=== PATIENT | male | born 1970 | race Hispanic/Latino ===

== ENCOUNTER 2021-07-14 11:28 | Inpatient (IN) | payer OTHER, SELFPAY ==
[~2021-07-14] VITALS: Ht 182.9 cm; Wt 111.3 kg
[2021-07-14] VITALS (10 sets, daily range): BP systolic 124–162; BP diastolic 74–122
[2021-07-14 12:26] LABS: BASOPHILS % (AUTO) 0.5 % (0.0-5.0); EOSINOPHILS % (AUTO) 0.4 % (0.0-8.0); HEMATOCRIT 40.3 % (42-54); LYMPHOCYTES % (AUTO) 17.4 % (21.0-51.0); MEAN CORPUSCULAR HEMOGLOBIN 30.7 pg (27.0-33.0); MEAN CORPUSCULAR HGB CONC 32.8 g/dL (32.0-36.0); MEAN CORPUSCULAR VOLUME 93.7 fL (79-99); MONOCYTES % (AUTO) 9.9 % (3.0-13.0); NEUTROPHILS % (AUTO) 71.5 % (40.0-77.0); PLATELET COUNT (AUTO) 195 K/uL (130-400); RED CELL DISTRIBUTION WIDTH 15.7 % (11.0-15.5); WHITE BLOOD COUNT (AUTO) 9.9 K/uL (4.8-10.8)
[2021-07-14] MEDS ORDERED: FUROSEMIDE 40MG VIAL IV STA (12:42)
[2021-07-14 12:47] LABS: ALBUMIN 2.9 g/dL (3.5-5.0); BILIRUBIN,TOTAL 1.8 mg/dL (0.2-1.0); CREATININE 1.6 mg/dL (0.5-1.5); TOTAL PROTEIN, SERUM 7.1 g/dL (6.0-8.3)
[2021-07-14 12:50] LABS: POTASSIUM 2.9 mmol/L (3.5-5.1)
[2021-07-14] MEDS ORDERED: NITROGLYCERIN 1GM OINT 1 INCH/1GM TD ONE ×2 (12:54→13:00)
[2021-07-14] MEDS ORDERED: POTASSIUM BICARB/CIT AC 25 MEQ TABLET.EFF PO STA (13:05)
[2021-07-14 13:07] LABS: B-TYPE NATRIURETIC PEPTIDE > 5000 pg/mL (0-100)
[2021-07-14] MEDS ORDERED: POTASSIUM CHLORIDE 10MEQ/100ML 100 ML IV PRN ×2 (15:30)
[2021-07-14] MEDS ORDERED: DEXTROSE 50%-WATER 50 ML DISP.SYRIN IV PRN (15:30)
[2021-07-14] MEDS ORDERED: ONDANSETRON 4MG INJ IVP PRN (15:30)
[2021-07-14] MEDS ORDERED: GLUCAGON 1MG KIT 1 MG ML IM PRN (15:30)
[2021-07-14] MEDS ORDERED: LIDOCAINE HCL-MPF 1% 2ML VIAL IV PRN ×2 (15:30)
[2021-07-14] MEDS ORDERED: ACETAMINOPHEN 650 MG SUPPOSITORY RC PRN (15:30)
[2021-07-14] MEDS ORDERED: POTASSIUM CHLORIDE 10% ELIXIR 20 MEQ/15 ML UDCUP PO PRN (15:30)
[2021-07-14] MEDS ORDERED: ACETAMINOPHEN 325 MG TAB PO PRN (15:30)
[2021-07-14 16:12] LABS: APPEARANCE,URINE Clear (CLEAR); BILIRUBIN,URINE Negative (NEGATIVE); COLOR,URINE Yellow (YELLOW); GLUCOSE, URINE (UA) Negative (NEGATIVE); KETONES,URINE Negative (NEGATIVE); LEUKOCYTE ESTERASE ,URINE Negative (NEGATIVE); NITRATE,URINE Negative (NEGATIVE); OCCULT BLOOD,URINE Negative (NEGATIVE); PH,URINE 6.5 (5.0-8.0); PROTEIN,URINE Negative (NEGATIVE); UROBILINOGEN,URINE 0.2 mg/dL (0.2-1.0)
[2021-07-14] MEDS ORDERED: ALBUTEROL 0.083% 2.5 MG/3 ML INH IH PRN (16:30)
[2021-07-14] MEDS ORDERED: AZITHROMYCIN 500MG VIAL IVPB SCH (16:30)
[2021-07-14] MEDS ORDERED: CEFTRIAXONE 1G VIAL IVP SCH (16:30)
[2021-07-14 16:31] LABS: AMPHET/METH SCREEN,URINE NEGATIVE (NEGATIVE); BARBITURATE SCREEN, URINE NEGATIVE (NEGATIVE); BENZODIAZEPINES SCREEN,URINE NEGATIVE (NEGATIVE); CANNABINOID SCREEN,URINE NEGATIVE (NEGATIVE); COCAINE SCREEN,URINE NEGATIVE (NEGATIVE); OPIATE SCREEN,URINE NEGATIVE (NEGATIVE); PHENCYCLIDINE SCREEN,URINE NEGATIVE (NEGATIVE)
[2021-07-14] MEDS ORDERED: AZITHROMYCIN 500MG+NS 250ML 250 ML IV ONE (16:39)
[2021-07-14] MEDS: 0.9% NACL 250ML IVPB SCH (16:57)
[2021-07-14] MEDS: FUROSEMIDE 40MG VIAL IV SCH (21:24)
[2021-07-14] MEDS: METOPROLOL TARTRATE 25 MG TAB PO SCH (21:24)
[2021-07-14] MEDS ORDERED: HYDR25TA PO (23:54)
[2021-07-15] MEDS ORDERED: HYD50 PO (00:07)
[2021-07-15 03:54] VITALS: BP 144/83
[2021-07-15 03:59] LABS: BASOPHILS % (AUTO) 0.3 % (0.0-5.0); EOSINOPHILS % (AUTO) 0.3 % (0.0-8.0); HEMATOCRIT 36.7 % (42-54); LYMPHOCYTES % (AUTO) 16.2 % (21.0-51.0); MEAN CORPUSCULAR HEMOGLOBIN 30.5 pg (27.0-33.0); MEAN CORPUSCULAR HGB CONC 32.2 g/dL (32.0-36.0); MEAN CORPUSCULAR VOLUME 94.8 fL (79-99); NEUTROPHILS % (AUTO) 71.7 % (40.0-77.0); PLATELET COUNT (AUTO) 171 K/uL (130-400); RED BLOOD CELL COUNT(AUTO) 3.87 MIL/uL (4.50-6.20); RED CELL DISTRIBUTION WIDTH 15.7 % (11.0-15.5); WHITE BLOOD COUNT (AUTO) 8.6 K/uL (4.8-10.8)
[2021-07-15 04:14] LABS: B-TYPE NATRIURETIC PEPTIDE > 5000 pg/mL (0-100)
[2021-07-15 04:27] LABS: HEMOGLOBIN A1C 5.7 % (4.0-6.0)
[2021-07-15 04:29] LABS: CREATININE 1.7 mg/dL (0.5-1.5); MAGNESIUM 1.5 mg/dL (1.80-2.40); PHOSPHORUS 4.2 mg/dL (2.5-4.9); THYROID STIMULATING HORMONE 2.75 uIU/mL (0.36-3.74)
[2021-07-15 04:40] LABS: POTASSIUM 2.9 mmol/L (3.5-5.1)
[2021-07-15] MEDS: KCL 20 MEQ ERTAB PO PRN ×5 (05:07→21:00)
[2021-07-15] MEDS: MAGNESIUM 2GM PREMIX 50ML 50 ML IV SCH ×2 (05:08→15:36)
[2021-07-15 07:00] VITALS: BP 134/94
[2021-07-15] MEDS: PANTOPRAZOLE 40 MG TAB DR PO SCH (07:26)
[2021-07-15] MEDS: POLYETHYLENE GLYCOL 3350 17 GM POWD.PACK PO SCH (10:27)
[2021-07-15] MEDS: METOPROLOL TARTRATE 25 MG TAB PO SCH (10:28)
[2021-07-15] MEDS: FUROSEMIDE 40MG VIAL IV SCH ×2 (10:28→21:00)
[2021-07-15] MEDS: ASPIRIN 81MG CHEW TAB PO SCH (10:28)
[2021-07-15] MEDS: ENOXAPARIN SODIUM 30 MG/0.3 ML SQ SCH (10:29)
[2021-07-15 11:00] VITALS: BP 142/100
[2021-07-15 13:49] LABS: MAGNESIUM 1.8 mg/dL (1.80-2.40); POTASSIUM 3.1 mmol/L (3.5-5.1)
[2021-07-15] MEDS ORDERED: 0.9% NACL 250ML IVPB SCH (14:30)
[2021-07-15] MEDS ORDERED: AZITHROMYCIN 500MG VIAL IVPB SCH (14:30)
[2021-07-15 15:00] VITALS: BP 116/76
[2021-07-15] MEDS: CEFTRIAXONE 2GM VIAL IVP SCH (15:35)
[2021-07-15] MEDS: 0.9% NACL 250ML IVPB SCH (17:51)
[2021-07-15] MEDS: AZITHROMYCIN 500MG+NS 250ML IV SCH (17:51)
[2021-07-15 19:00] VITALS: BP 106/82
[2021-07-15 19:54] LABS: CREATININE,SERUM FOR CRCL 1.7 mg/dL (0.6-1.3)
[2021-07-15 20:05] LABS: COLLECTION PERIOD,URINE 24 HR; TOTAL VOLUME 24HRS,URINE 3000 mL; TPROTEIN TIMED,URINE 14 mg/dL; TPROTEIN U,24HR CALC 420 mg/24HR (0-165)
[2021-07-15] MEDS: CARVEDILOL 3.125 MG TABLET PO SCH (20:59)
[2021-07-15] MEDS ORDERED: HYDROXYZINE 25 MG TABLET PO ONE (22:00)
[2021-07-16] VITALS: BP 119/84
[2021-07-16 04:00] VITALS: BP 113/81
[2021-07-16 04:17] LABS: HEMATOCRIT 38.5 % (42-54); MEAN CORPUSCULAR HEMOGLOBIN 30.2 pg (27.0-33.0); MEAN CORPUSCULAR HGB CONC 31.9 g/dL (32.0-36.0); MEAN CORPUSCULAR VOLUME 94.6 fL (79-99); PLATELET COUNT (AUTO) 181 K/uL (130-400); RED BLOOD CELL COUNT(AUTO) 4.07 MIL/uL (4.50-6.20); RED CELL DISTRIBUTION WIDTH 15.6 % (11.0-15.5); WHITE BLOOD COUNT (AUTO) 8.1 K/uL (4.8-10.8)
[2021-07-16 04:42] LABS: CREATININE 1.8 mg/dL (0.5-1.5); MAGNESIUM 1.9 mg/dL (1.80-2.40); PHOSPHORUS 4.4 mg/dL (2.5-4.9); POTASSIUM 3.3 mmol/L (3.5-5.1)
[2021-07-16 04:44] LABS: B-TYPE NATRIURETIC PEPTIDE > 5000 pg/mL (0-100)
[2021-07-16] MEDS: PANTOPRAZOLE 40 MG TAB DR PO SCH (04:48)
[2021-07-16] MEDS: MAGNESIUM 2GM PREMIX 50ML 50 ML IV SCH (04:48)
[2021-07-16] MEDS: KCL 20 MEQ ERTAB PO PRN ×3 (04:59→16:59)
[2021-07-16 08:00] VITALS: BP 139/71
[2021-07-16] MEDS: LOSARTAN 25 MG TABLET PO SCH (08:54)
[2021-07-16] MEDS: ASPIRIN 81MG CHEW TAB PO SCH (08:54)
[2021-07-16] MEDS: CARVEDILOL 3.125 MG TABLET PO SCH ×2 (08:55→20:53)
[2021-07-16] MEDS: FUROSEMIDE 40MG VIAL IV SCH ×2 (08:55→20:53)
[2021-07-16] MEDS: POLYETHYLENE GLYCOL 3350 17 GM POWD.PACK PO SCH (08:56)
[2021-07-16] MEDS: ENOXAPARIN SODIUM 30 MG/0.3 ML SQ SCH (08:56)
[2021-07-16] MEDS ORDERED: SPIRONOLACTONE 25 MG TAB PO SCH (09:00)
[2021-07-16 12:00] VITALS: BP 124/80
[2021-07-16] MEDS: CEFTRIAXONE 2GM VIAL IVP SCH (14:44)
[2021-07-16 16:00] VITALS: BP 125/72
[2021-07-16] MEDS: 0.9% NACL 250ML IVPB SCH (16:52)
[2021-07-16] MEDS: AZITHROMYCIN 500MG+NS 250ML IV SCH (16:52)
[2021-07-16 19:00] VITALS: BP 125/73
[2021-07-16] MEDS ORDERED: TEMAZEPAM 7.5 MG CAPSULE PO ONE ×2 (22:50→23:00)
[2021-07-17] VITALS: BP 111/85
[2021-07-17 04:00] VITALS: BP 115/83
[2021-07-17 04:56] LABS: HEMATOCRIT 34.8 % (42-54); MEAN CORPUSCULAR HEMOGLOBIN 29.8 pg (27.0-33.0); MEAN CORPUSCULAR HGB CONC 31.9 g/dL (32.0-36.0); MEAN CORPUSCULAR VOLUME 93.3 fL (79-99); RED BLOOD CELL COUNT(AUTO) 3.73 MIL/uL (4.50-6.20); RED CELL DISTRIBUTION WIDTH 15.4 % (11.0-15.5); WHITE BLOOD COUNT (AUTO) 6.7 K/uL (4.8-10.8)
[2021-07-17 05:11] LABS: CREATININE 1.9 mg/dL (0.5-1.5); MAGNESIUM 1.9 mg/dL (1.80-2.40); POTASSIUM 3.2 mmol/L (3.5-5.1)
[2021-07-17] MEDS: PANTOPRAZOLE 40 MG TAB DR PO SCH (06:20)
[2021-07-17] MEDS: MAGNESIUM 2GM PREMIX 50ML 50 ML IV SCH (06:32)
[2021-07-17] MEDS: KCL 20 MEQ ERTAB PO PRN ×4 (06:33→17:44)
[2021-07-17 08:00] VITALS: BP 118/92
[2021-07-17] MEDS: ENOXAPARIN SODIUM 30 MG/0.3 ML SQ SCH (10:04)
[2021-07-17] MEDS: POLYETHYLENE GLYCOL 3350 17 GM POWD.PACK PO SCH (10:04)
[2021-07-17] MEDS: LOSARTAN 25 MG TABLET PO SCH (10:05)
[2021-07-17] MEDS: ASPIRIN 81MG CHEW TAB PO SCH (10:05)
[2021-07-17] MEDS: CARVEDILOL 3.125 MG TABLET PO SCH ×2 (10:05→21:19)
[2021-07-17] MEDS: SPIRONOLACTONE 25 MG TAB PO SCH (10:06)
[2021-07-17] MEDS: AZITHROMYCIN 250 MG TABLET PO SCH (10:13)
[2021-07-17 12:00] VITALS: BP 118/55
[2021-07-17] MEDS: CEFTRIAXONE 2GM VIAL IVP SCH (15:45)
[2021-07-17 16:00] VITALS: BP 130/88
[2021-07-17] MEDS: 0.9% NACL 250ML IVPB SCH (17:30)
[2021-07-17 19:00] VITALS: BP 124/73
[2021-07-18] VITALS (8 sets, daily range): BP systolic 110–140; BP diastolic 67–107
[2021-07-18 03:56] LABS: HEMATOCRIT 37.2 % (42-54); MEAN CORPUSCULAR HEMOGLOBIN 29.8 pg (27.0-33.0); MEAN CORPUSCULAR HGB CONC 31.7 g/dL (32.0-36.0); MEAN CORPUSCULAR VOLUME 93.9 fL (79-99); RED BLOOD CELL COUNT(AUTO) 3.96 MIL/uL (4.50-6.20); RED CELL DISTRIBUTION WIDTH 15.4 % (11.0-15.5); WHITE BLOOD COUNT (AUTO) 6.3 K/uL (4.8-10.8)
[2021-07-18 04:21] LABS: CREATININE 1.9 mg/dL (0.5-1.5); MAGNESIUM 2.1 mg/dL (1.80-2.40); PHOSPHORUS 4.4 mg/dL (2.5-4.9); POTASSIUM 3.8 mmol/L (3.5-5.1)
[2021-07-18] MEDS ORDERED: CARV3.1262 PO (06:19)
[2021-07-18] MEDS ORDERED: ASPI-1005 PO (06:19)
[2021-07-18] MEDS ORDERED: SPIR25TA6 PO (06:19)
[2021-07-18] MEDS ORDERED: LOSA25TA2 PO (06:19)
[2021-07-18] MEDS ORDERED: FURO40TA5 PO (06:20)
[2021-07-18] MEDS: PANTOPRAZOLE 40 MG TAB DR PO SCH (06:43)
[2021-07-18] MEDS: CARVEDILOL 3.125 MG TABLET PO SCH ×2 (09:00→22:51)
[2021-07-18] MEDS: SPIRONOLACTONE 25 MG TAB PO SCH (09:01)
[2021-07-18] MEDS ORDERED: REGADENOSON 0.4 MG/5 ML PF SYG IVP SCH (12:00)
[2021-07-18] MEDS: ASPIRIN 81MG CHEW TAB PO SCH (16:51)
[2021-07-18] MEDS: LOSARTAN 25 MG TABLET PO SCH (16:51)
[2021-07-18] MEDS: POLYETHYLENE GLYCOL 3350 17 GM POWD.PACK PO SCH (16:52)
[2021-07-18] MEDS: AZITHROMYCIN 250 MG TABLET PO SCH (16:52)
[2021-07-18] MEDS: CEFTRIAXONE 2GM VIAL IVP SCH (16:53)
[2021-07-18] MEDS: ENOXAPARIN SODIUM 30 MG/0.3 ML SQ SCH (16:54)
[2021-07-18] MEDS: 0.9% NACL 250ML IVPB SCH (17:30)
[2021-07-19] VITALS (7 sets, daily range): BP systolic 118–147; BP diastolic 75–109
[2021-07-19 04:19] LABS: HEMATOCRIT 38.3 % (42-54); MEAN CORPUSCULAR HEMOGLOBIN 29.8 pg (27.0-33.0); MEAN CORPUSCULAR HGB CONC 31.3 g/dL (32.0-36.0); RED BLOOD CELL COUNT(AUTO) 4.03 MIL/uL (4.50-6.20); RED CELL DISTRIBUTION WIDTH 15.4 % (11.0-15.5); WHITE BLOOD COUNT (AUTO) 6.8 K/uL (4.8-10.8)
[2021-07-19 04:42] LABS: ALBUMIN 2.2 g/dL (3.5-5.0); BILIRUBIN,TOTAL 0.9 mg/dL (0.2-1.0); CREATININE 1.8 mg/dL (0.5-1.5); POTASSIUM 3.8 mmol/L (3.5-5.1); TOTAL PROTEIN, SERUM 6.2 g/dL (6.0-8.3)
[2021-07-19] MEDS: PANTOPRAZOLE 40 MG TAB DR PO SCH (06:59)
[2021-07-19] MEDS: LOSARTAN 25 MG TABLET PO SCH (09:10)
[2021-07-19] MEDS: ASPIRIN 81MG CHEW TAB PO SCH (09:10)
[2021-07-19] MEDS: CARVEDILOL 3.125 MG TABLET PO SCH ×2 (09:11→22:18)
[2021-07-19] MEDS: SPIRONOLACTONE 25 MG TAB PO SCH (09:11)
[2021-07-19] MEDS: AZITHROMYCIN 250 MG TABLET PO SCH (09:11)
[2021-07-19] MEDS: POLYETHYLENE GLYCOL 3350 17 GM POWD.PACK PO SCH (09:12)
[2021-07-19] MEDS: FUROSEMIDE 40 MG TABLET PO SCH (09:12)
[2021-07-19] MEDS: ENOXAPARIN SODIUM 30 MG/0.3 ML SQ SCH (09:12)
[2021-07-19] MEDS: CEFTRIAXONE 2GM VIAL IVP SCH (17:23)
[2021-07-19] MEDS: 0.9% NACL 250ML IVPB SCH (17:30)
[2021-07-19] MEDS: DOPAMINE HCL 400 MG/D5%-WATER 250 ML IV SCH (17:47)
[2021-07-19] MEDS: ATORVASTATIN 40 MG TABLET PO SCH (22:18)
[2021-07-20 03:44] LABS: CREATININE 1.3 mg/dL (0.5-1.5); POTASSIUM 3.5 mmol/L (3.5-5.1)
[2021-07-20 03:48] LABS: ALBUMIN 2.9 g/dL (3.5-5.0); BILIRUBIN,DIRECT 0.2 mg/dL (0.0-0.3); BILIRUBIN,TOTAL 0.6 mg/dL (0.2-1.0)
[2021-07-20 03:50] VITALS: BP 123/84
[2021-07-20] MEDS: KCL 20 MEQ ERTAB PO PRN ×2 (06:36→08:45)
[2021-07-20] MEDS: PANTOPRAZOLE 40 MG TAB DR PO SCH (06:37)
[2021-07-20 08:00] VITALS: BP 127/91
[2021-07-20] MEDS: ASPIRIN 81MG CHEW TAB PO SCH (08:34)
[2021-07-20] MEDS: LEVOFLOXACIN 500 MG TABLET PO SCH (08:34)
[2021-07-20] MEDS: LOSARTAN 25 MG TABLET PO SCH (08:34)
[2021-07-20] MEDS: ENOXAPARIN SODIUM 30 MG/0.3 ML SQ SCH (08:35)
[2021-07-20] MEDS: POLYETHYLENE GLYCOL 3350 17 GM POWD.PACK PO SCH (08:35)
[2021-07-20] MEDS: CARVEDILOL 3.125 MG TABLET PO SCH ×2 (08:35→20:23)
[2021-07-20] MEDS: SPIRONOLACTONE 25 MG TAB PO SCH (08:36)
[2021-07-20] MEDS: FUROSEMIDE 40 MG TABLET PO SCH (08:36)
[2021-07-20 11:42] VITALS: BP 108/74
[2021-07-20] MEDS: CEFTRIAXONE 2GM VIAL IVP SCH (14:29)
[2021-07-20] MEDS: DOPAMINE HCL 400 MG/D5%-WATER 250 ML IV SCH (14:29)
[2021-07-20 15:56] VITALS: BP 133/75
[2021-07-20] MEDS: 0.9% NACL 250ML IVPB SCH (16:35)
[2021-07-20 20:01] VITALS: BP 127/57
[2021-07-20] MEDS: ATORVASTATIN 40 MG TABLET PO SCH (20:23)
[2021-07-20 23:16] VITALS: BP 112/79
[2021-07-21] VITALS (13 sets, daily range): BP systolic 92–155; BP diastolic 60–104
[2021-07-21 04:05] LABS: HEMATOCRIT 41.7 % (42-54); MEAN CORPUSCULAR HEMOGLOBIN 29.6 pg (27.0-33.0); MEAN CORPUSCULAR HGB CONC 30.9 g/dL (32.0-36.0); MEAN CORPUSCULAR VOLUME 95.6 fL (79-99); PLATELET COUNT (AUTO) 218 K/uL (130-400); RED BLOOD CELL COUNT(AUTO) 4.36 MIL/uL (4.50-6.20); RED CELL DISTRIBUTION WIDTH 15.3 % (11.0-15.5)
[2021-07-21 04:18] LABS: CREATININE 1.3 mg/dL (0.5-1.5); MAGNESIUM 1.5 mg/dL (1.80-2.40); POTASSIUM 4.3 mmol/L (3.5-5.1)
[2021-07-21 04:19] LABS: INR 1.26 (0.85-1.15); PROTHROMBIN TIME 13.4 SEC (9.6-11.6)
[2021-07-21 04:20] LABS: PARTIAL THROMBOPLASTIN TIME 30.7 SEC (26.3-35.5)
[2021-07-21] MEDS: PANTOPRAZOLE 40 MG TAB DR PO SCH (04:58)
[2021-07-21] MEDS: CARVEDILOL 3.125 MG TABLET PO SCH ×2 (04:58→08:49)
[2021-07-21] MEDS: MAGNESIUM 2GM PREMIX 50ML 50 ML IV SCH (04:58)
[2021-07-21] MEDS: SPIRONOLACTONE 25 MG TAB PO SCH (08:47)
[2021-07-21] MEDS: POLYETHYLENE GLYCOL 3350 17 GM POWD.PACK PO SCH (09:00)
[2021-07-21] MEDS: ASPIRIN 81MG CHEW TAB PO SCH (09:00)
[2021-07-21] MEDS: FUROSEMIDE 40 MG TABLET PO SCH (09:03)
[2021-07-21] MEDS: LOSARTAN 25 MG TABLET PO SCH (09:03)
[2021-07-21] MEDS ORDERED: NITROGLYCERIN 50MG VIAL IV ONE (11:19)
[2021-07-21] MEDS ORDERED: IOHEXOL-350 50ML VIAL IV ONE ×2 (11:20→12:23)
[2021-07-21] MEDS ORDERED: LIDOCAINE HCL 400MG/20ML VIAL ONE (11:20)
[2021-07-21] MEDS ORDERED: IOHEXOL 350 MG/ML 100ML INFUS..BTL IV ONE (11:20)
[2021-07-21] MEDS ORDERED: MIDAZOLAM HCL 1 MG/ML 2ML VIAL ONE (12:02)
[2021-07-21] MEDS ORDERED: HEPARIN 10,000 UNIT/10ML (1,000 UNIT/ML) VIAL ONE (12:18)
[2021-07-21] MEDS ORDERED: CLOPIDOGREL 300MG TAB ONE (12:58)
[2021-07-21] MEDS ORDERED: ASPIRIN 325MG EC TAB PO ONE (12:58)
[2021-07-21] MEDS ORDERED: MORPHINE 5 MG/ML VIAL (5MG OR GREATER DOSE) IVP SCH (13:30)
[2021-07-21] MEDS ORDERED: ONDANSETRON 4MG INJ IVP SCH ×2 (13:30→16:30)
[2021-07-21] MEDS ORDERED: ACETAMINOPHEN WITH CODEINE 1 TAB TAB PO PRN ×2 (13:30)
[2021-07-21] MEDS ORDERED: TEMAZEPAM 30 MG CAP PO PRN (13:30)
[2021-07-21] MEDS ORDERED: ONDANSETRON 4MG INJ IVP PRN (13:30)
[2021-07-21] MEDS: FUROSEMIDE 40MG VIAL IV SCH (14:08)
[2021-07-21 14:40] LABS: INR 1.34 (0.85-1.15); PROTHROMBIN TIME 14.2 SEC (9.6-11.6)
[2021-07-21 14:41] LABS: PARTIAL THROMBOPLASTIN TIME 83.4 SEC (26.3-35.5)
[2021-07-21 15:38] LABS: INR 1.3 (0.85-1.15); PROTHROMBIN TIME 13.8 SEC (9.6-11.6)
[2021-07-21 15:40] LABS: PARTIAL THROMBOPLASTIN TIME 46.2 SEC (26.3-35.5)
[2021-07-21] MEDS: MORPHINE 5 MG/ML VIAL (5MG OR GREATER DOSE) IVP SCH ×2 (16:21→17:07)
[2021-07-21] MEDS ORDERED: MORPHINE 4 MG SYG IVP SCH (16:30)
[2021-07-21] MEDS: 0.9% NACL 250ML IVPB SCH (17:55)
[2021-07-21] MEDS: ATORVASTATIN 40 MG TABLET PO SCH (20:42)
[2021-07-22] VITALS (9 sets, daily range): BP systolic 95–135; BP diastolic 62–80
[2021-07-22] MEDS: FUROSEMIDE 40MG VIAL IV SCH ×2 (01:38→13:07)
[2021-07-22 04:21] LABS: HEMATOCRIT 45.1 % (42-54); MEAN CORPUSCULAR HEMOGLOBIN 29.6 pg (27.0-33.0); MEAN CORPUSCULAR HGB CONC 30.6 g/dL (32.0-36.0); MEAN CORPUSCULAR VOLUME 96.6 fL (79-99); RED BLOOD CELL COUNT(AUTO) 4.67 MIL/uL (4.50-6.20); RED CELL DISTRIBUTION WIDTH 15.4 % (11.0-15.5); WHITE BLOOD COUNT (AUTO) 7.3 K/uL (4.8-10.8)
[2021-07-22 04:32] LABS: CREATININE 1.4 mg/dL (0.5-1.5); POTASSIUM 3.9 mmol/L (3.5-5.1)
[2021-07-22] MEDS ORDERED: CLOP75TA32 PO (06:56)
[2021-07-22] MEDS: PANTOPRAZOLE 40 MG TAB DR PO SCH (07:30)
[2021-07-22] MEDS: ASPIRIN 81MG CHEW TAB PO SCH ×2 (09:00→09:46)
[2021-07-22] MEDS ORDERED: PANTOPRAZOLE 40 MG TAB DR PO SCH (09:00)
[2021-07-22] MEDS: CLOPIDOGREL 75MG TAB PO SCH (09:45)
[2021-07-22] MEDS: LOSARTAN 25 MG TABLET PO SCH (09:46)
[2021-07-22] MEDS: CARVEDILOL 3.125 MG TABLET PO SCH ×2 (09:46→21:47)
[2021-07-22] MEDS: SPIRONOLACTONE 25 MG TAB PO SCH (09:46)
[2021-07-22] MEDS: LEVOFLOXACIN 500 MG TABLET PO SCH (09:47)
[2021-07-22] MEDS: POLYETHYLENE GLYCOL 3350 17 GM POWD.PACK PO SCH (09:47)
[2021-07-22] MEDS: 0.9% NACL 250ML IVPB SCH (16:34)
[2021-07-22] MEDS: ATORVASTATIN 40 MG TABLET PO SCH (21:48)
[2021-07-23] VITALS: BP 97/65
[2021-07-23] MEDS: FUROSEMIDE 40MG VIAL IV SCH (01:15)
[2021-07-23 04:00] VITALS: BP 111/73
[2021-07-23 05:30] LABS: CREATININE 1.6 mg/dL (0.5-1.5); POTASSIUM 3.8 mmol/L (3.5-5.1)
[2021-07-23 07:30] VITALS: BP 107/76
[2021-07-23] MEDS ORDERED: ASPI-1005 PO (08:01)
[2021-07-23] MEDS ORDERED: LOSA25TA2 PO (08:04)
[2021-07-23] MEDS ORDERED: ATOR40TA69 PO (08:04)
[2021-07-23] MEDS ORDERED: CARV3.1262 PO (08:04)
[2021-07-23] MEDS ORDERED: SPIR25TA6 PO (08:04)
[2021-07-23] MEDS ORDERED: FURO10VI4 IV (08:05)
[2021-07-23] MEDS: ASPIRIN 81MG CHEW TAB PO SCH ×2 (09:00→10:09)
[2021-07-23] MEDS: CLOPIDOGREL 75MG TAB PO SCH (10:09)
[2021-07-23] MEDS: SPIRONOLACTONE 25 MG TAB PO SCH (10:09)
[2021-07-23] MEDS: LOSARTAN 25 MG TABLET PO SCH (10:09)
[2021-07-23] MEDS: CARVEDILOL 3.125 MG TABLET PO SCH (10:10)
[2021-07-23] MEDS: POLYETHYLENE GLYCOL 3350 17 GM POWD.PACK PO SCH (10:10)
[2021-07-23] MEDS: PANTOPRAZOLE 40 MG TAB DR PO SCH (10:12)
[2021-07-23 11:00] VITALS: BP 100/70
[2021-07-23 16:00] VITALS: BP 126/88
[2021-07-23] MEDS ORDERED: FURO40TA7 PO (18:49)
== END 2021-07-23 21:24 | disposition home or self-care (01) | DRG 175 ==
LOC: EDH 11:28 → EDHIP 11:29 → 4BH 22:59 → 4CH 07-21 12:40
PROVIDERS: ADMIT Internal Medicine Critical Care Medicine; ATTEND Internal Medicine Critical Care Medicine
PROC: 5A09357 Assistance with Respiratory Ventilation, Less than 24 Consecutive Hours, Continuous Positive Airway Pressure (ICD-10-PCS; 2021-07-16)
PROC: 5A09357 Assistance with Respiratory Ventilation, Less than 24 Consecutive Hours, Continuous Positive Airway Pressure (ICD-10-PCS; 2021-07-17)
PROC: 5A09357 Assistance with Respiratory Ventilation, Less than 24 Consecutive Hours, Continuous Positive Airway Pressure (ICD-10-PCS; 2021-07-18)
PROC: 027036Z Dilation of Coronary Artery, One Artery with Three Drug-eluting Intraluminal Devices, Percutaneous Approach (ICD-10-PCS; principal; 2021-07-21)
PROC: 4A023N7 Measurement of Cardiac Sampling and Pressure, Left Heart, Percutaneous Approach (ICD-10-PCS; 2021-07-21)
PROC: B2111ZZ Fluoroscopy of Multiple Coronary Arteries using Low Osmolar Contrast (ICD-10-PCS; 2021-07-21)
PROC: 5A09357 Assistance with Respiratory Ventilation, Less than 24 Consecutive Hours, Continuous Positive Airway Pressure (ICD-10-PCS; 2021-07-21)
PROC: 5A09357 Assistance with Respiratory Ventilation, Less than 24 Consecutive Hours, Continuous Positive Airway Pressure (ICD-10-PCS; 2021-07-22)
DX: I13.0 Hypertensive heart and chronic kidney disease with heart failure and stage 1 through stage 4 chronic kidney disease, or unspecified chronic kidney disease (principal); E43 Unspecified severe protein-calorie malnutrition; I47.2 Ventricular tachycardia; J18.9 Pneumonia, unspecified organism; I42.0 Dilated cardiomyopathy; N17.9 Acute kidney failure, unspecified; E66.01 Morbid (severe) obesity due to excess calories; N18.31 Chronic kidney disease, stage 3a; I51.3 Intracardiac thrombosis, not elsewhere classified; K74.60 Unspecified cirrhosis of liver; N39.0 Urinary tract infection, site not specified; I25.10 Atherosclerotic heart disease of native coronary artery without angina pectoris; I50.43 Acute on chronic combined systolic (congestive) and diastolic (congestive) heart failure; G47.33 Obstructive sleep apnea (adult) (pediatric); Z20.822 Contact with and (suspected) exposure to COVID-19; Z68.33 Body mass index [BMI] 33.0-33.9, adult; E87.6 Hypokalemia; I25.5 Ischemic cardiomyopathy; E78.5 Hyperlipidemia, unspecified; B95.8 Unspecified staphylococcus as the cause of diseases classified elsewhere; F41.9 Anxiety disorder, unspecified; Z79.02 Long term (current) use of antithrombotics/antiplatelets; Z79.82 Long term (current) use of aspirin; Z79.899 Other long term (current) drug therapy; Z95.5 Presence of coronary angioplasty implant and graft; Z82.49 Family history of ischemic heart disease and other diseases of the circulatory system
CPT/HCPCS: 36415; 71045; 71250; 74176; 78452; 80048; 80053; 80061; 80076; 80305; 81003; 82550; 82575; 83036; 83735; 83874; 83880; 84100; 84132; 84145; 84156; 84443; 84484; 85025; 85027; 85347; 85378; 85610; 85730; 87077; 87088; 87186; 87635; 93005; 93017; 93306; 93356; 93458; 93970; 94660; 94664; 96374; 99156; 99157; A9500; C1769; C1887; C1894; C9600; C9803; G0378; J0456; J0696; J1265; J1644; J1650; J1940; J2250; J2270; J2405; J2785; J3475; J3490; J7050; Q9967

== ENCOUNTER → 2022-03-11 | Outpatient (CLI) | payer OTHER ==
[~2022-03-11] MED LIST: APIX5TAB PO; ATOR40TA69 PO; CLOP75TA32 PO; FURO40TA5 PO; METO-391 PO
[2022-03-11 12:44] LABS: BASOPHILS % (AUTO) 0.9 % (0.0-5.0); EOSINOPHILS % (AUTO) 0.9 % (0.0-8.0); HEMATOCRIT 51.5 % (42-54); LYMPHOCYTES % (AUTO) 35.4 % (21.0-51.0); MEAN CORPUSCULAR HEMOGLOBIN 30.8 pg (27.0-33.0); MEAN CORPUSCULAR HGB CONC 31.7 g/dL (32.0-36.0); MEAN CORPUSCULAR VOLUME 97.2 fL (79-99); MONOCYTES % (AUTO) 9.8 % (3.0-13.0); NEUTROPHILS % (AUTO) 52.6 % (40.0-77.0); PLATELET COUNT (AUTO) 133 K/uL (130-400); RED CELL DISTRIBUTION WIDTH 16.5 % (11.0-15.5); WHITE BLOOD COUNT (AUTO) 4.6 K/uL (4.8-10.8)
[2022-03-11 14:17] LABS: CREATININE 1.8 mg/dL (0.5-1.5); POTASSIUM 3.6 mmol/L (3.5-5.1)
== END | disposition home or self-care (01) ==
LOC: LAB 11:52
PROVIDERS: ATTEND Internal Medicine Cardiovascular Disease
DX: I10 Essential (primary) hypertension (principal)
CPT/HCPCS: 36415; 80048; 85025

== ENCOUNTER 2022-07-22 07:29 | Day surgery (SDC) | payer OTHER ==
[2022-07-20 10:38] LABS: BASOPHILS % (AUTO) 0.6 % (0.0-5.0); HEMATOCRIT 52.1 % (42-54); LYMPHOCYTES % (AUTO) 31.5 % (21.0-51.0); MEAN CORPUSCULAR HGB CONC 33.6 g/dL (32.0-36.0); MEAN CORPUSCULAR VOLUME 95.2 fL (79-99); MONOCYTES % (AUTO) 13.9 % (3.0-13.0); NEUTROPHILS % (AUTO) 52.4 % (40.0-77.0); PLATELET COUNT (AUTO) 153 K/uL (130-400); RED BLOOD CELL COUNT(AUTO) 5.47 MIL/uL (4.50-6.20); RED CELL DISTRIBUTION WIDTH 13.9 % (11.0-15.5); WHITE BLOOD COUNT (AUTO) 5.2 K/uL (4.8-10.8)
[2022-07-20 10:46] LABS: CREATININE 2.2 mg/dL (0.5-1.5); POTASSIUM 3.1 mmol/L (3.5-5.1)
[2022-07-20 10:50] LABS: INR 1.22 (0.85-1.15); PROTHROMBIN TIME 13.1 SEC (9.6-11.6)
[2022-07-20 10:51] LABS: PARTIAL THROMBOPLASTIN TIME 33.5 SEC (26.3-35.5)
[2022-07-21 10:16] VITALS: BP 115/74
[2022-07-22] VITALS (20 sets, daily range): BP systolic 77–150; BP diastolic 44–110
[~2022-07-22] VITALS: Ht 182.9 cm; Wt 91.8 kg
[~2022-07-22 07:29] MED LIST changes: +AMIO200T68 PO; -METO-391 PO; +METO-409 PO; +SACU1TAB PO
[2022-07-22] MEDS ORDERED: 0.9%NACL 1000ML 1,000 ML IV ONE (08:07)
[2022-07-22] MEDS ORDERED: PROPOFOL 10 MG/ML 20ML VIAL IV ONE (09:22)
[2022-07-22] MEDS ORDERED: PHENYLEPHRINE HCL 10 MG/ML 1ML VIAL IV ONE (09:39)
== END 2022-07-22 10:31 | disposition home or self-care (01) ==
LOC: DAH 07:29
PROVIDERS: ATTEND Internal Medicine Cardiovascular Disease
DX: I48.19 Other persistent atrial fibrillation (principal); Z20.822 Contact with and (suspected) exposure to COVID-19; I11.0 Hypertensive heart disease with heart failure; I50.22 Chronic systolic (congestive) heart failure; I44.7 Left bundle-branch block, unspecified; I44.0 Atrioventricular block, first degree; I25.5 Ischemic cardiomyopathy; I25.2 Old myocardial infarction; E78.5 Hyperlipidemia, unspecified; Z79.899 Other long term (current) drug therapy; Z79.01 Long term (current) use of anticoagulants
CPT/HCPCS: 87426; 80048; 85025; 85610; 85730; 36415; 92960; 93005 ×2; J7030; J2704; A4215; A4222; A4221; A4663; A4216; A4606; A4223 ×3; 99156; 99157; J2370

== ENCOUNTER → 2023-02-12 | Outpatient (CLI) | payer OTHER ==
[~2023-02-12] MED LIST changes: +ATOR40TA71 PO; +FURO40TA7 PO; +METO50TA9 PO; +SPIR25TA6 PO
[2023-02-12 12:46] LABS: CREATININE 1.3 mg/dL (0.5-1.5); POTASSIUM 3.6 mmol/L (3.5-5.1)
== END | disposition home or self-care (01) ==
LOC: LAB 11:00
PROVIDERS: ATTEND Internal Medicine Cardiovascular Disease
DX: I50.22 Chronic systolic (congestive) heart failure (principal)
CPT/HCPCS: 36415; 80048; 83880

== ENCOUNTER → 2023-08-23 | Outpatient (CLI) | payer OTHER | END | disposition home or self-care (01) | LOC: SHCH 15:39 | PROVIDERS: ATTEND Internal Medicine Cardiovascular Disease | DX: I11.9 Hypertensive heart disease without heart failure (principal); I35.0 Nonrheumatic aortic (valve) stenosis; E78.5 Hyperlipidemia, unspecified; I31.39 Other pericardial effusion (noninflammatory) | CPT/HCPCS: 93306 ==

== ENCOUNTER → 2024-05-15 | Outpatient (CLI) | payer OTHER ==
[2024-05-15 12:14] LABS: CREATININE 1.5 mg/dL (0.5-1.3); POTASSIUM 3.5 mmol/L (3.5-5.1)
== END | disposition home or self-care (01) ==
LOC: LAB 10:55
PROVIDERS: ATTEND Internal Medicine Cardiovascular Disease
DX: I50.22 Chronic systolic (congestive) heart failure (principal)
CPT/HCPCS: 36415; 80048

== ENCOUNTER → 2024-05-26 | Outpatient (CLI) | payer OTHER ==
[2024-05-26 12:24] LABS: CREATININE 1.5 mg/dL (0.5-1.3); POTASSIUM 3.8 mmol/L (3.5-5.1)
== END | disposition home or self-care (01) ==
LOC: LAB 09:29
PROVIDERS: ATTEND Internal Medicine Cardiovascular Disease
DX: I10 Essential (primary) hypertension (principal)
CPT/HCPCS: 36415; 80048

== ENCOUNTER → 2024-06-02 | Outpatient (CLI) | payer OTHER ==
[2024-06-02 13:00] LABS: CREATININE 1.4 mg/dL (0.5-1.3); POTASSIUM 3.6 mmol/L (3.5-5.1)
== END | disposition home or self-care (01) ==
LOC: LAB 10:24
PROVIDERS: ATTEND Internal Medicine Cardiovascular Disease
DX: I10 Essential (primary) hypertension (principal)
CPT/HCPCS: 36415; 80048

== ENCOUNTER → 2024-08-02 | Outpatient (CLI) | payer OTHER | END | disposition home or self-care (01) | LOC: SHCH 09:40 | PROVIDERS: ATTEND Internal Medicine Cardiovascular Disease | DX: I08.0 Rheumatic disorders of both mitral and aortic valves (principal); I11.9 Hypertensive heart disease without heart failure; I48.91 Unspecified atrial fibrillation; E78.5 Hyperlipidemia, unspecified; I25.5 Ischemic cardiomyopathy | CPT/HCPCS: 93306 ==